=== PATIENT | male | born 1990 | race African-American/Black ===

== ENCOUNTER 2025-02-10 20:38 | Emergency (ER) | payer MEDICAID, SELFPAY ==
--- NOTE | ~2025-02-10 | CT_ITS ---
CT abdomen pelvis w con Ordering provider: Alisa Liz PA-C History: 35 years Male with . epigastric abd pain . Comparison: None. Technique: CT abdomen and pelvis with IV and without oral contrast. Automated exposure control and it erative reconstruction technique were employed. The dose-length product was 447.35 mGy-cm. 100 mL Omn ipaque 350 was given IV. Findings: VISUALIZED LOWER CHEST: Normal. UPPER ABDOMINAL ORGANS: Liver: Normal. The lucency is seen in the portal vein is most likely mixing of blood. Gallbladder: Normal. Spleen: Normal. Stomach/duodenum: Small sliding hiatus hernia. Pancreas: Normal. Adrenals: Normal. Kidneys: Small cyst in the right kidney upper pole measuring 1.4 cm.. PELVIC ORGANS: The bladder is underfilled with thickened wall. BOWEL AND MESENTERY: Colon: No evidence of diverticulitis.. Fecal material is seen in the right side of the colon. Normal appendix. Small Bowel: Normal. No obstruction. Peritoneum/mesentery: No free air or free fluid. No mesenteric lymphadenopathy. RETROPERITONEUM: Normal aorta. No retroperitoneal lymphadenopathy. MUSCULOSKELETAL: Superficial soft tissues: Small fat-containing umbilical hernia. Otherwise, The superficial soft tiss ues are normal. Bones: Normal spine. IMPRESSION: 1. No evidence of appendicitis, diverticulitis or intestinal obstruction. 2. Small sliding hiatus hernia. 3. Constipation. Reviewed, dictated and finalized at location A.
[2025-02-10 20:43] VITALS: BP 137/78; PULSE 61; RESP 18; TEMP 37.1; O2SAT 100
[2025-02-10 21:45] LABS: Basophils Percent Auto 0.2 % (0.2-1.2); Eosinophils Absolute Auto 0.1 K/mm3 (0-0.3); Eosinophils Percent Auto 0.8 % (0-4.4); Hematocrit 48.2 % (42.0-52.0); Hemoglobin 15.8 g/dL (14.0-18.0); Immature Granulocyte Absolute 0.02 K/mm3 (0.00-0.031); Immature Granulocyte Percent A 0.3 % (0-0.5); Lymphocytes Absolute Auto 1.41 K/mm3 (0.9-3.2); Lymphocytes Percent Auto 23.2 % (18.3-44.2); Mean Corpuscular HGB Conc 32.8 g/dl (32-36); Mean Corpuscular Volume 88.4 fl (80-100); Monocytes Absolute Auto 0.3 K/mm3 (0.1-0.6); Monocytes Percent Auto 5.3 % (2.6-8.5); Neutrophils Absolute Auto 4.3 K/mm3 (1.3-6.7); Neutrophils Percent Auto 70.2 % (45.5-73.1); Platelet Count Result 179 k/mm3 (150-375); Red Blood Count 5.45 M/mm3 (4.6-6.20); Red Cell Distribution Width 12.4 % (11.5-14.5); White Blood Count 6.1 K/mm3 (4.5-10.0)
[2025-02-10 21:56] LABS: Alanine Aminotransferase 68 U/L (6-50); Albumin Level 4.7 g/dL (3.5-5.1); Alkaline Phosphatase 48 U/L (38-126); Anion Gap 12 mmol/L (4-12); Aspartate Amino Transferase 98 U/L (17-59); Bilirubin,Total 0.9 mg/dL (0.2-1.3); Blood Urea Nitrogen 12 mg/dL (9-20); Calcium 8.4 mg/dL (8.4-10.2); Carbon Dioxide 26 mmol/L (22-30); Chloride 105 mmol/L (98-107); Estimated CRCL calculation 109 ml/min; Estimated Glomerular Filt Rate > 60; Glucose 90 mg/dL (65-110); Lipase 114 U/L (23-300); Magnesium 1.9 mg/dL (1.6-2.3); Potassium 3.3 mmol/L (3.4-5.0); Sodium 143 mmol/L (137-145)
--- NOTE | 2025-02-10 22:15 | ED_ITS ---
HPI - Abdominal Pain General Chief Complaint: Abdominal Pain Stated Complaint: Vomiting-Abdominal pain x 2 weeks Time Seen by Provider: 02/10/25 21:34 History of Present Illness HPI narrative: 35-year-old male with no past medical history presents to the ED with significant other at bedside for epigastric abdominal pain intermittently for the past 2 weeks. Patient states the pain is in his epigastrium in worse after eating. He had chicken wings for lunch and states his symptoms became significantly worse. He had an episode of nausea and vomiting prior to arrival. Denies fever but has had chills since arriving to the ED. Denies dysuria or hematuria. No prior abdominal surgeries. Related Data Allergies Allergy/AdvReac Type Severity Reaction Status Date / Time No Known Allergies Allergy Verified 02/10/25 20:39 Review of Systems 2 Review of Systems: All systems reviewed & are unremarkable except as noted in HPI and below Exam 2 Narrative: GENERAL: Ill appearing HEAD: Normocephalic, atraumatic. EYES: EOMI. ENT: Nares clear, no rhinorrhea or epistaxis. Mucous membranes moist. NECK: Supple. CHEST: Clear to auscultation. No respiratory distress. HEART: Regular rate and rhythm. No murmur heard. Normal peripheral pulses. ABDOMEN: Normoactive bowel sounds. Abdomen soft with tenderness in the epigastrium. No rebound or rigidity. No CVA tenderness. Negative Lund sign EXTREMITIES: Normal range of motion. No edema. SKIN: Warm, dry, no rash. NEURO: No focal deficits. Alert and oriented x3 Course Vital Signs Vital signs: Vital Signs Temperature 98.8 F 02/10/25 20:43 Pulse Rate 61 02/10/25 20:43 Respiratory Rate 18 02/10/25 20:43 Blood Pressure 137/78 02/10/25 20:43 Pulse Oximetry 100 02/10/25 20:43 Oxygen Delivery Room Air 02/10/25 20:43 Temperature 98.8 F 02/10/25 20:43 Pulse Rate 61 02/11/25 00:44 Respiratory Rate 17 02/11/25 00:44 Blood Pressure 110/71 02/11/25 00:44 Pulse Oximetry 98 02/11/25 00:44 Oxygen Delivery Room Air 02/10/25 20:43 MDM - Abdominal Pain MDM Narrative Medical decision making narrative: 35-year-old male with no past medical history, no surgical history presents to the ED for intermittent epigastric abdominal pain for the past 2 weeks. Pain worsened today after eating chicken wings for lunch. Triage vitals are stable. Exam is significant for the above. Lab work without leukocytosis or anemia. Chemistries with mild hypokalemia of 3.3 which is intravenously repleted. Magnesium is within normal limits. Chemistries also reveal an AST of 98 and ALT of 68, no prior for comparison. Normal alk-phos and bilirubin. Lipase within normal limits. UA with trace ketones, no UTI. Lactic acid is elevated at 2.7, IV fluids provided. CT abdomen pelvis shows no evidence of appendicitis, diverticulitis or intestinal obstruction. There is evidence of a small sliding hiatal hernia and constipation. Normal gallbladder. Patient received IV fluids, Pepcid, Zofran. Attempted to provided GI cocktail, unfortunately patient immediately vomited. He was then given Reglan and Toradol with significant improvement. Suspect symptoms are due to gastritis/gerd. On re-evaluation patient is resting comfortably in exam bed. He was updated on results. Will prescribe Pepcid, Zofran and a bowel regimen. Discussed diet changes and follow-up with PCP. Return precautions discussed. He is agreeable with the plan verbalized understanding. Discharged in stable condition. Lab Data 02/10/25 21:40 02/10/25 21:40 Labs: Lab Results 02/10/25 02/10/25 02/10/25 Range/Units 21:40 22:37 23:19 WBC 6.1 (4.5-10.0) K/mm3 RBC 5.45 (4.6-6.20) M/mm3 Hgb 15.8 (14.0-18.0) g/dL Hct 48.2 (42.0-52.0) % MCV 88.4 (80-100) fl MCH 29.0 (26-34) pg MCHC 32.8 (32-36) g/dl RDW 12.4 (11.5-14.5) % Plt Count 179 (150-375) k/mm3 MPV 10.0 (7.4-10.4) fl Immature Gran % (Auto) 0.3 (0-0.5) % Neut % (Auto) 70.2 (45.5-73.1) % Lymph % (Auto) 23.2 (18.3-44.2) % [place] % (Auto) 5.3 (2.6-8.5) % Eos % (Auto) 0.8 (0-4.4) % Baso % (Auto) 0.2 (0.2-1.2) % Lymph # (Auto) 1.41 (0.9-3.2) K/mm3 [place] # (Auto) 0.3 (0.1-0.6) K/mm3 Eos # (Auto) 0.1 (0-0.3) K/mm3 Baso # (Auto) 0.0 (0.0-0.1) K/mm3 Abs Immat Gran (auto) 0.02 (0.00-0.031) K/mm3 Absolute Neuts (auto) 4.3 (1.3-6.7) K/mm3 Absolute Nucleated RBC 0.000 (0.0-0.012) K/mm3 Nucleated RBC % 0.0 (0.0-0.2) % Sodium 143 (137-145) mmol/L Potassium 3.3 L (3.4-5.0) mmol/L Chloride 105 (98-107) mmol/L Carbon Dioxide 26 (22-30) mmol/L Anion Gap 12 (4-12) mmol/L BUN 12 (9-20) mg/dL Creatinine 0.87 (0.7-1.3) mg/dL Estim Creat Clear Calc 109 ml/min Estimated GFR > 60 (59 - ) Glucose 90 (65-110) mg/dL Lactic Acid 2.7 H (0.7-2.0) mmol/L Calcium 8.4 (8.4-10.2) mg/dL Magnesium 1.9 (1.6-2.3) mg/dL Total Bilirubin 0.9 (0.2-1.3) mg/dL AST 98 H (17-59) U/L ALT 68 H (6-50) U/L Alkaline Phosphatase 48 (38-126) U/L Total Protein 8.0 (6.3-8.2) g/dL Albumin 4.7 (3.5-5.1) g/dL Lipase 114 (23-300) U/L Urine Color Yellow (Yellow) Urine Appearance Clear (Clear) Urine pH 8.5 (5.0-9.0) Ur Specific [place] 1.017 (1.001-1.035) Urine Protein Negative (Negative) mg/dL Urine Glucose (UA) Negative (Negative) mg/dL Urine Ketones Trace H (Negative) mg/dL Ur Blood (Man) Negative (Negative) Urine Nitrate Negative (Negative) Urine Bilirubin Negative (Negative) Urine Urobilinogen 1.0 (<2.0) mg/dL Leukocyte Esterase Rfl Negative (Negative) DAMASO/UL Imaging Data Radiologist's impression: ITS Impressions Abdomen/Pelvis CT 02/10/25 23:39 IMPRESSION: 1. No evidence of appendicitis, diverticulitis or intestinal obstruction. 2. Small sliding hiatus hernia. 3. Constipation. Discharge Plan Discharge Clinical Impression: Abdominal pain, acute, epigastric, Acute hypokalemia, Transaminitis, Hernia, hiatal Constipation Qualifiers: Constipation type: unspecified constipation type Qualified Code(s): K59.00 - Constipation, unspecified Patient Disposition: Home Condition: Stable Instructions: Antibiotic Form, Gastritis (DC), Constipation (DC), Diet for Stomach Ulcers and Gastritis (ED) Additional Instructions: You were evaluated in the emergency department for abdominal pain. Your found have an elevation in your liver enzymes culture AST and ALT. Your AST is 98 and her ALT is 68. Please follow-up your primary care provider regarding house. The CT scan showed constipation and a hiatal hernia as discussed. Please take the antacids and nausea medications as needed. Refrain from fatty and spicy foods and acidic foods such as tomatoes and coffee. Refrain from NSAID such is ibuprofen, Aleve, naproxen, Advil. Eat a bland diet. Return to the emergency department if you develop a fever of 101 for greater all worsening pain or other concerning symptoms. Patient Language: Luxembourger Prescriptions: New ondansetron 4 mg tablet,disintegrating 4 mg PO Q8H Qty: 14 0RF famotidine 20 mg tablet 20 mg PO DAILY Qty: 14 0RF docusate sodium 100 mg capsule 100 mg PO BID Qty: 60 0RF polyethylene glycol 3350 17 gram/dose powder 17 g PO DAILY Qty: 119 0RF Follow-up/Referrals: PHYSICIAN,EDUCATIONAL DIAGNOSTICIAN [Primary Care Provider] -
[2025-02-10] MEDS: ONDANSETRON INJ 4 MG/2 ML VIAL IV PUSH (22:32)
[2025-02-10] MEDS: BELLADONNA ALK/PHENOB ELIX 10 ML, MAG HYDROX/ALUMINUM HYD/SIMETH 30 ML, LIDOCAINE 2% VI... PO (22:32)
[2025-02-10] MEDS: SODIUM CHLORIDE 0.9% IV 1,000 ML 999 ML IV CONT (22:32)
[2025-02-10] MEDS: FAMOTIDINE 20 MG/2 ML VIAL IV PUSH (22:32)
[2025-02-10 22:35] VITALS: BP 127/88; PULSE 78; RESP 19; O2SAT 98
[2025-02-10 22:44] LABS: Add Urine Microscopic? NO; Appearance Urine Clear (Clear); Bilirubin Urine Negative (Negative); Blood Urine Negative (Negative); Color Urine Yellow (Yellow); Glucose Urine UA Negative (Negative); Ketones Urine Trace mg/dL (Negative); Leukocyte Esterase Ur Negative LEU/UL (Negative); Nitrate Urine Negative (Negative); Protein Urine Negative (Negative); Specific Grav Ur 1.017 (1.001-1.035); pH Urine 8.5 (5.0-9.0)
[2025-02-10] MEDS: METOCLOPRAMIDE HCL INJ 10 MG/2 ML VIAL IV PUSH (23:28)
[2025-02-10] MEDS: KETOROLAC 15 MG/ML VIAL (*BKC) IV PUSH (23:28)
[2025-02-10] MEDS: KCL 20 MEQ/SW 100 ML 100 ML 50 MEQ IVPB (23:32)
[2025-02-10 23:38] LABS: Lactic Acid Reflex 2.7 mmol/L (0.7-2.0)
[2025-02-11 00:44] VITALS: BP 110/71; PULSE 61; RESP 17; O2SAT 98
[2025-02-11 01:21] LABS: Reflex Lactic Acid Yes or No Add Lactic
--- OUTSIDE RECORDS SUMMARY | 2025-02-11 15:35 | XMS_ITS | Clinical Summary ---
Author Organization [facility] Address [address] [address] Care Team Providers Care Sales Representative Gas Service Name Role Phone Alcides Hernandez MD Primary Care Provider [phone] Allergies No known active allergies Medications cyclobenzaprine (FLEXERIL) 10 mg tablet 12/10/2014 Active naproxen (NAPROSYN) 500 mg tablet 12/10/2014 Active Active Problems Problem Noted Date Diagnosed Date Back injury 01/18/2015 Chronic back pain 01/18/2015 ANAHI (generalized anxiety disorder) 01/18/2015 Major depression 01/18/2015 Encounters Date Type Department Care Team Description 12/28/2024 External Device Data [facility] ABSTRACTION Provider, Abstract 12/06/2024 External Device Data [facility] ABSTRACTION Provider, Abstract from Last 3 Months Family History Medical History Relation Name Comments Unknown Father Unknown Mother Relation Name Status Comments Father Mother Social History Tobacco Use Types Packs/Day Years Used Date Smoking Tobacco: Never Tobacco Cessation:Counseling Given: Not Answered Alcohol Use Standard Drinks/Week Comments Yes 0 (1 standard drink = 0.6 oz pur e alcohol) socially Sex and Gender Information Value Date Recorded Sex Assigned at Not on file Legal Sex Male 9:06 AM CDT Gender Identity Not on file Sexual Orientation Not on file 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 Not on f ile Not on file Last Filed Vital Signs Vital Sign Reading Time Taken Comments Blood Pressure 136/87 07/29/2024 9:28 AM CDT Pulse 62 07/29/2024 9:28 AM CDT Temperature 36.4 C (97.6 F) 07/29/2024 9:28 AM CDT Respiratory Rate 14 07/29/2024 9:28 AM CDT Oxygen Saturation 100% 07/29/2024 9:28 AM CDT Inhaled Oxygen Concentration - - Weight 79.4 kg (175 lb) 07/29/2024 9:28 AM CDT Height 177.8 cm (5' 10 ) 07/29/2024 9:28 AM CDT Body Mass Index 25.11 07/29/2024 9:28 AM CDT Plan of Treatment Health Maintenance Due Date Last Done Comments Pre-Diabetes and Diabetes Screening 1989 DTAP/TDAP/TD VACCINES (1 - Tdap) 01/23/2008 HEPATITIS B VACCINES (1 of 3 - 19+ 3-dose series) 01/23/2008 INFLUENZA VACCINE (#1) 2024 HPV VACCINES Aged Out No longer eligi ble based on patient's age to complete this topic Insurance [employer] CHOICE Care Teams Sales Representative Gas Service Relationship Specialty Start Date End Date Alcides Hernandez MD [address] [place] [address] PCP - General Internal Medicine 04/23/23
--- OUTSIDE RECORDS SUMMARY | 2025-02-11 15:35 | XMS_ITS | Clinical Summary ---
Author Organization [facility] Address [facility] [place] [address] Care Team Providers Care Asparagus Buncher Name Role Phone Alcides Fernandes MD Primary Care Provider [phone] Allergies No known active allergies Medications hydrocortisone (ANUSOL-HC) 25 mg suppositoryInd ications:Grade I hemorrhoids,Re ctal or anal pain Insert 1 suppository (25 mg total) into the rectum 2 (two) times a day 24 suppository 1 3 Active Additional Information Patient not taking.Reported on 04/07/2023 naproxen (NAPROSYN) 500 mg tablet Take 1 tablet (500 mg total) by mouth 2 (two) times a day with meals 60 tablet 1 4 Active Active Problems Problem Noted Date Diagnosed Date Cervical spine pain 01/26/2024 Pain in joint of left shoulder 01/26/2024 Tear of left glenoid labrum 01/05/2024 Assessment & Plan (01/05/2024 11:07 AM CDT): Patient has apprehension with a positive sulcus suggestive of a labral injury. His MRI was not read of having a labral tear but there is fluid tracking underneath the labrum which appears to be both anteriorly and posteriorly. Would recommend evaluation by our shoulder specialist as stabilization may be required. He does have a partial-thickness rotator cuff tear as well. Traumatic incomplete tear of left rotator cuff 0 12/15/2023 Assessment & Plan (12/15/2023 2:12 PM IP LITIGATION ASSOCIATE): Patient likely has a partial-thickness rotator cuff tear with impingement. 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 This is best determine how to treat his shoulder going forward. 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 He has not myelopathic. Encounter for well adult exam with abnormal find ings 04/07/2023 Assessment & Plan (04/07/2023 9:52 PM CDT): Problem list reviewed and updated. Current Meds reconciled and health maintenance care gaps reviewed. Sore throat 04/07/2023 Rectal or anal pain 02/03/2023 Grade I hemorrhoids 02/03/2023 Left lower quadrant abdominal pain 02/03/2023 Assessment & Plan (02/03/2023 9:30 PM CDT): Patient reports improvement of abdominal pain will continue to monitor for recurrence. Fall on same level from slip ping, tripping and stumbling with subsequent striking against other object, initial encounter 10/21/2022 Head contusion 10/21/2022 Cervical strain 10/21/2022 Back injury 01/18/2015 02/03/2023 Chronic back pain 01/18/2015 02/03/2023 ANAHI (generalized anxiety disorder) 01/18/2015 02/03/2023 Major depression 01/18/2015 02/03/2023 Toothache 11/14/2014 Overview (01/15/2017): Tooth ache Back pain 11/14/2014 Overview (01/15/2017): Back pain Mixed anxiety depressive disorder 11/14/2014 Overview (01/15/2017): Depression with anxiety Immunizations Immunization Administration Dates Next Due Influenza, Unspecified 06/12/2022(Deferred: Selena ent Refused) Medical History Medical History Date Comments Abdominal pain Family History Medical History Relation Name Comments No Known Problems Father Depression Mother Depression; Kidney disease Mother Other Mother Alive and well; Relation Name Status Comments Father Alive Mother Alive Social History Tobacco Use Types Packs/Day Years Used Date Smoking Tobacco: Never Alcohol Use Standard Drinks/Week Comments Yes 0 (1 standard drink = 0.6 oz pur e alcohol) AUDIT-C Answer Date Recorded Frequency of Alcohol Consumption Not on file 04/07/2023 Average Number of Drinks Not on file 023 Q3: How often do you have si x or more drinks on one occasion? Never 04/07/2023 PHQ-2 Answer Date Recorded PHQ-2 Total Score (If total score is 3 or more points, staff should administer the PHQ-9) 0 02/03/2023 Personal Safety Answer Date Recorded Getting School Help Needed Denies 10/10 Sex and Gender Information Value Date Recorded Sex Assigned at Not on file Legal Sex Male 3:22 AM IP LITIGATION ASSOCIATE Gender Identity Male 12/14/2022 4:54 PM IP LITIGATION ASSOCIATE Sexual Orientation Not on file Occupation Industry Job Start Date Job End Date [employer] Not on file Not on file Not on file Obstetrics History Last Filed Vital Signs Vital Sign Reading Time Taken Comments Blood Pressure 122/80 01/05/2024 10:24 AM CDT Pulse 96 12/15/2023 11:35 AM IP LITIGATION ASSOCIATE Temperature 36.8 C (98.2 F) 12/15/2023 11:35 AM IP LITIGATION ASSOCIATE Respiratory Rate 18 12/15/2023 11:35 AM IP LITIGATION ASSOCIATE Oxygen Saturation 98% 12/15/2023 11:35 AM IP LITIGATION ASSOCIATE Inhaled Oxygen Concentration - - Weight 88 kg (194 lb) 01/13/2024 10:59 AM CDT Height 180.3 cm (5' 10.98 ) 01/13/2024 10:59 AM CDT Body Mass Index 27.07 01/13/2024 10:59 AM CDT Plan of Treatment Health Maintenance Due Date Last Done Comments Hepatitis C Screening 1989 DTaP/Tdap/Td Vaccine (1 - Tdap) 01/23/2000 Hepatitis B Screening 2007 Depression Screening 02/04/2024 02/03/2023 Regular Well Visit/Exam 18-64 04/07/2024 04/07/2023, 04/07/2023 Influenza Vaccine (Season Ended) 2025 HPV Vaccines Aged Out No longer eligi ble based on patient's age to complete this topic Pneumococcal vaccine <65 Aged Out No longer eligible based on patient's age to complete this topic Varicella Vaccines Discontinued Insurance BLUE ACCESS OOS ANTHEM ACCESS CHOICE ANTHEM ACCESS CHOICE Care Teams Asparagus Buncher Relationship Specialty Start Date End Date Alcides Fernandes MD PCP - General Family Medicine 02/03/23
--- OUTSIDE RECORDS SUMMARY | 2025-02-11 15:35 | XMS_ITS | Referral Summary ---
Author Organization [facility] Address [address] [place] [address] Care Team Providers Care Measurement And Verification Engineer Name Role Phone Alcides Fernandes MD Primary Care Provider [phone] Allergies No known active allergies Medications hydrocortisone [...] 12/15/2023 Assessment & Plan (12/15/2023 2:12 PM MAINTENANCE REPAIRER): Patient likely has a partial-thickness rotator cuff [...] Due Influenza, Unspecified 06/12/2022(Deferred: Selena ent Refused) Social History Tobacco Use Types Packs/Day Years [...] on file Legal Sex Male 3:22 AM MAINTENANCE REPAIRER Gender Identity Male 12/14/2022 4:54 PM MAINTENANCE REPAIRER Sexual Orientation Not on file Occupation Industry Job Start Date Job End Date [employer] Not on file Not on file Not on file Last Filed Vital Signs Vital Sign Reading Time Taken Comments Blood Pressure 122/80 01/05/2024 10:24 AM CDT Pulse 96 12/15/2023 11:35 AM MAINTENANCE REPAIRER Temperature 36.8 C (98.2 F) 12/15/2023 11:35 AM MAINTENANCE REPAIRER Respiratory Rate 18 12/15/2023 11:35 AM MAINTENANCE REPAIRER Oxygen Saturation 98% 12/15/2023 11:35 AM MAINTENANCE REPAIRER Inhaled Oxygen Concentration - - Weight 88 kg (194 lb) 01/13/2024 10:59 AM CDT Height 180.3 cm (5' 10.98 ) 01/13/2024 10:59 AM CDT Body Mass Index 27.07 01/13/2024 10:59 AM CDT Plan of Treatment Not on file Insurance [employer] OOS ANTHEM ACCESS CHOICE ANTHEM ACCESS CHOICE Care Teams Measurement And Verification Engineer Relationship Specialty Start Date End Date Alcides Fernandes MD PCP - General Family Medicine 02/03/23
== END 2025-02-11 01:36 | disposition home or self-care (01) ==
PROVIDERS: Emergency Medicine; Emergency Provider Physician Assistant
DX: K44.9 Diaphragmatic hernia without obstruction or gangrene (principal); K59.00 Constipation, unspecified; R74.01 Elevation of levels of liver transaminase levels; E87.6 Hypokalemia; R10.13 Epigastric pain
CPT/HCPCS: 36415; 74177; 80053; 81003; 83605; 83690; 83735; 85025; 96365; 96375; 99284; A9270; J1885; J2405; J2765; J3480; J7030; Q9967